=== PATIENT | female | born 1960 | race Two or more races ===

== ENCOUNTER 2020-11-12 21:20 | Emergency (ER) | payer OTHER, SELFPAY ==
[~2020-11-12] VITALS: Ht 154.9 cm; Wt 69.9 kg
--- NOTE | 2020-11-12 21:47 | NUR ---
PT CAME IN [place] SOB, COUGH, BODY ACHES, CHILLS, FEVERS X 1 WEEK. HAD A POSITIVE COVID TEST ON THE , WENT TO [facility] YESTERDAY AND WAS DCd. PT RESTING IN [facility]. EKG COMPLETE. CONNECTED TO ALL MONITORING EQUIPMENT.
[2020-11-12] MEDS ORDERED: KETOROLAC 30 MG/1 ML ONE (21:52)
[2020-11-12] MEDS ORDERED: DEXAMETHASONE 4 MG TABLET ONE (21:52)
[2020-11-12] MEDS ORDERED: SODIUM CHLORIDE 0.9% 1,000ML IVBOLUS ONE (22:00)
[2020-11-12] MEDS ORDERED: DEXAMETHASONE 4 MG TABLET PO ONE (22:00)
[2020-11-12] MEDS ORDERED: KETOROLAC 30 MG/1 ML IVPush ONE (22:00)
[2020-11-12 22:23] LABS: BASOPHILS % (AUTO) 0 % (0-1); EOSINOPHILS % (AUTO) 0 % (1-7); LYMPHOCYTES % (AUTO) 19 % (22-44); MEAN CORPUSCULAR HEMOGLOBIN 29.1 pg (27.0-34.8); MEAN CORPUSCULAR HGB CONC 34.1 g/dL (32.4-35.8); MEAN PLATELET VOLUME 8.7 fL (7.4-10.4); MONOCYTES % (AUTO) 7 % (2-9); NEUTROPHILS % (AUTO) 74 % (42-75); PLATELET COUNT 213 x10^3/uL (130-400); RED CELL DISTRIBUTION WIDTH 12.9 % (9.6-15.2)
[2020-11-12 22:24] LABS: MD NO
--- NOTE | 2020-11-12 22:25 | NUR ---
PATIENT UPDATED ON PLAN OF CARE. NO NOTED ADDITIONAL NEEDS AT THIS TIME. WILL CONTINUE TO MONITOR.
[2020-11-12 22:31] LABS: ALANINE AMINOTRANSFERASE 49 U/L (12-78); ALBUMIN 2.9 g/dL (3.4-5.0); ANION GAP 12 mmol/L (5-15); CALCIUM 8.3 mg/dL (8.5-10.1); CHLORIDE 105 mmol/L (98-107); CREATININE 0.89 mg/dL (0.55-1.02)
[2020-11-12 22:35] LABS: ALKALINE PHOSPHATASE 121 U/L (45-117); BILIRUBIN,TOTAL 0.8 mg/dL (0.2-1.0); TOTAL PROTEIN 7.2 g/dL (6.4-8.2); TROPONIN I < 0.015 ng/mL (0.000-0.045)
[2020-11-13 00:18] VITALS: BP 131/70
== END 2020-11-13 00:20 | disposition home or self-care (01) ==
LOC: ED 21:50
DX: U07.1 COVID-19 (principal); J40 Bronchitis, not specified as acute or chronic; R06.02 Shortness of breath; R07.89 Other chest pain; R05 Cough; R10.9 Unspecified abdominal pain; R94.31 Abnormal electrocardiogram [ECG] [EKG]; R06.00 Dyspnea, unspecified
CPT/HCPCS: 36415; 71045; 80053; 84484; 85025; 93005; 96361; 96374; 99285; J1885; J7030